=== PATIENT | female | born 1930 | race Caucasian/White ===

== ENCOUNTER → 2016-08-03 | Outpatient (CLI) | payer OTHER ==
[~2016-08-03] MED LIST: ADVAIR HFA115 MCG/21 INH; ADVAIRDISKUS; ALBUTEROL2.5 MG/0.1 INH; ALLOPURINOL 30300 M2 PO; ASPIRIN EC325 M1 PO; CARVEDILOL6.25 MG PO; DOCUSATE SODIU100 MG PO; DULERA 200 MCG/13 GM INH; LEVOTHYROXINE0.05 MG PO; LOPRESSOR25; NEURONTIN 300300 M1 PO; NEURONTIN600 MG PO; NORCO 5-325 TA1 EACH PO; PRAVASTATIN SOD40 MG PO; PREDNISOLONE 5 M5 M1; PREDNISONE 20 M20 MG; PROVENTIL HFA6.7 G1 INH; RESTORIL30 MG PO; SENOKOT-S1 TA1 PO; SPIRIVA INH; TYLENOL325 MG PO; VENTOLIN HFA 1818 GM INH; ZOLOFT100 MG PO
== END ==
LOC: ULTRA 10:36
DX: I65.29 Occlusion and stenosis of unspecified carotid artery (principal)